=== PATIENT | male | born 1975 | race Caucasian/White ===

== ENCOUNTER → 2017-11-15 08:22 | Day surgery (SDC) | payer MEDICARE ==
[~2017-11-15] VITALS: Ht 177.8 cm; Wt 116.4 kg
--- NOTE | ~2017-11-15 | OP ---
PATIENT NAME: JESSICA BOYD MEDICAL RECORD: [id number] :75 LOCATION:[facility] ADMISSION DATE: SURGEON: GERA SUAREZ MD DATE OF OPERATION: 11/15/2017 PREOPERATIVE DIAGNOSES: 1. Biliary dyskinesia. 2. Hypertension. 3. Gastroesophageal reflux disease. POSTOPERATIVE DIAGNOSES: 1. Biliary dyskinesia. 2. Hypertension. 3. Gastroesophageal reflux disease. PROCEDURE: Laparoscopic cholecystectomy. SURGEON: Gera Suarez MD REPORT OF PROCEDURE: The patient's abdomen was prepped and draped in sterile fashion. The patient was noted to have a large wart in the umbilicus with a small stalk. This was excised with sharp dissection and a skin area was treated with electrocautery. We then made an incision just above the umbilicus. Electrocautery was used to dissect through the subcutaneous tissues and 0 Vicryls were placed in the fascia bilaterally. The fascia was incised with 15-blade and we bluntly entered the peritoneal cavity. A 12-mm Joseph was then placed and insufflation was obtained. A 5-mm trocar was then placed in the epigastrium and 2 more 5-mm trocars were placed in the right subcostal region. The gallbladder was grasped and elevated. There were no signs of any acute inflammatory changes, but there were some old fatty adhesions present to the infundibulum of the gallbladder. These were teased down carefully with blunt dissection. The cystic artery and cystic duct were dissected free and these were clipped proximally and distally and ligated in standard fashion. The gallbladder was taken off the liver bed using electrocautery and then placed in the right upper quadrant. Any bleeding from the liver bed was treated with electrocautery. At this point, the ports and insufflation were then removed and the gallbladder was taken out through the umbilicus. The umbilical fascia was closed with interrupted 0 Vicryls times 3. The wounds were then irrigated out with normal saline, infused with 10 mL of 0.25% Marcaine with epinephrine. The skin incisions were all closed with subcutaneous 5-0 Monocryl and dressed appropriately. COMPLICATIONS: None. CONDITION: Stable. ANESTHESIA: General endotracheal and local. BLOOD LOSS: Minimal. TRANSINT:[id number] Voice Confirmation ID: [id number] DOCUMENT ID: [id number] OPERATIVE REPORT [id number] JESSICA BOYD CHRISTIAN MD at 1031 CC: LUCIO ROTHMAN [id number] DICTATION DATE: 11/15/17 1208 [employer] SPECIALIST: 11/15/17 1507 [facility] 11/15/17 [id number] [place] [address]
[~2017-11-15 08:22] MED LIST: BISOPROLOL PO; HYDROCODONE-APA1 TAB PO; OMEPRAZOLE20 M1 PO
[2017-11-15 09:25] LABS: BASOPHILS 0.5 % (0-2); IMMATURE GRANULOCYTES 0.4 % (0-5); LYMPHOCYTES 29.1 % (15-50); MCH 31.1 pg (26.0-34.0); MCHC 35.6 g/dL (31.0-37.0); MCV 87.5 fL (80.0-100.0); MONOCYTES 6.3 % (2-11); NEUTROPHILS 59.7 % (40-80); PLATELET COUNT 268 10x3/uL (130-400); RBC 5.14 10x6/uL (4.20-6.10); RDW 12.9 % (11.5-14.5); WBC 10.4 10x3/uL (4.8-10.8)
[2017-11-15 09:41] LABS: CALC OSMOLALITY 277 mosm/kg (275-300); CALCIUM 8.9 mg/dL (8.5-10.1); CARBON DIOXIDE 29.2 mmol/L (21.0-32.0); CHLORIDE - SERUM 102 mmol/L (98-107); CREATININE - SERUM 1.1 mg/dL (0.6-1.3); GLUCOSE 98 mg/dL (74-106); POTASSIUM - SERUM 3.8 mmol/L (3.5-5.1); SODIUM 140 mmol/L (136-145); UREA NITROGEN 10 mg/dL (7-18); eGFR NON AFRICAN AMERICAN 78 mL/min (90-120)
[2017-11-15 10:15] VITALS: BP 115/72; Ht 177.8 cm; Wt 116.4 kg
== END | disposition home or self-care (01) ==
LOC: D.OPS 08:22 → D.PAN 11:00 → D.OPS 11:00
PROVIDERS: Surgery
DX: K82.8 Other specified diseases of gallbladder (principal); I10 Essential (primary) hypertension; K21.9 Gastro-esophageal reflux disease without esophagitis; G47.30 Sleep apnea, unspecified; Z01.812 Encounter for preprocedural laboratory examination